=== PATIENT | female | born 1980 | race Caucasian/White ===

== ENCOUNTER 2017-01-25 10:41 | Emergency (ER) | payer BC, OTHER ==
[2017-01-25 14:54] LABS: HEMOGLOBIN 14.8 gm/dl (12.3-15.3); RED BLOOD COUNT 4.97 M/UL (4.00-5.10); WHITE BLOOD COUNT 5.7 K/UL (4.5-11.0)
[2017-01-25 15:58] LABS: BUN/CREATININE RATIO 20 (0-10)
== END 2017-01-25 17:00 | disposition home or self-care (01) ==
LOC: ER1 10:41
PROVIDERS: Family Medicine
DX: R42 Dizziness and giddiness (principal); Z90.49 Acquired absence of other specified parts of digestive tract; Z88.5 Allergy status to narcotic agent; Z88.8 Allergy status to other drugs, medicaments and biological substances; Z79.84 Long term (current) use of oral hypoglycemic drugs; Z79.899 Other long term (current) drug therapy
CPT/HCPCS: 36415; 70450; 71010; 80053; 81001; 82550; 82553; 83690; 83874; 84484; 85025; 93005; 96360; 99284

== ENCOUNTER → 2021-08-09 | Outpatient (CLI) | payer BC, OTHER ==
[~2021-08-09] MED LIST: VISTARIL25 MG PO
== END ==
LOC: KOH-I 15:45
DX: M79.604 Pain in right leg (principal); M25.561 Pain in right knee
CPT/HCPCS: 73564

== ENCOUNTER → 2021-11-03 | Outpatient (CLI) | payer BC, OTHER | LOC: EMI 08:00 | DX: M25.561 Pain in right knee (principal); M79.604 Pain in right leg; M94.261 Chondromalacia, right knee | CPT/HCPCS: 73721 ==